=== PATIENT | male | born 1970 | race Caucasian/White ===

== ENCOUNTER 2021-01-24 13:48 | Outpatient (CLI) | payer OTHER ==
[~2021-01-24] VITALS: Ht 177.8 cm; Wt 100.0 kg
[2021-01-24] VITALS (7 sets, daily range): BP systolic 99–105; BP diastolic 45–76; PULSE 72–84; TEMP 97.9–98.1
[~2021-01-24 13:48] MED LIST: NO HOME MEDICATIONS
[2021-01-24] MEDS ORDERED: MOBIC15 MG PO (14:00)
[2021-01-24] MEDS ORDERED: NORCO 325 MG-51 TAB PO (14:00)
[2021-01-24] MEDS ORDERED: TYLENOL 325MG325 MG PO (14:01)
[2021-01-24] MEDS ORDERED: ZOCOR 20MG20 MG PO (14:01)
[2021-01-24] MEDS ORDERED: PENTASA250 MG PO (14:01)
--- NOTE | 2021-01-24 15:40 | NUR ---
Pt tolerated infusion without issue. INT DC'd with catheter intact. He is escorted out to ED entrance.
== END 2021-01-24 16:00 | disposition home or self-care (01) ==
LOC: EUO 13:48
DX: U07.1 COVID-19 (principal)
CPT/HCPCS: Q0244